=== PATIENT | female | born 1995 | race African-American/Black ===

== ENCOUNTER 2021-02-12 08:17 | Outpatient (CLI) | payer BC, SELFPAY | END 2021-02-12 08:18 | disposition home or self-care (01) | LOC: ANHCOVIDVC 08:17 | DX: Z23 Encounter for immunization (principal) | CPT/HCPCS: 0001A; 91300 ==

== ENCOUNTER 2021-03-05 08:18 | Outpatient (CLI) | payer BC, SELFPAY | END 2021-03-05 08:19 | disposition home or self-care (01) | LOC: ANHCOVIDVC 08:18 | DX: Z23 Encounter for immunization (principal) | CPT/HCPCS: 0002A; 91300 ==